=== PATIENT | female | born 1995 | race Caucasian/White ===

== ENCOUNTER → 2018-03-16 | Outpatient (CLI) | payer BC ==
[~2018-03-16] MED LIST: NORCO 325 MG-51 TAB PO; YASMIN 3 MG-0.01 TAB PO; ZITHROMAX 250M250 MG PO
== END ==
LOC: MC.RAD 09:00
DX: N64.89 Other specified disorders of breast (principal); N63.20 Unspecified lump in the left breast, unspecified quadrant; N64.4 Mastodynia